=== PATIENT | male | born 2000 | race Two or more races ===

== ENCOUNTER 2020-06-11 02:27 | Emergency (ER) | payer OTHER ==
[~2020-06-11] VITALS: Ht 170.2 cm; Wt 64.9 kg
[2020-06-11 04:00] VITALS: BP 99/50
[2020-06-11 04:59] LABS: Basophils # (auto) 0.1 10 ^3/uL (0-0.2); Basophils % (auto) 0.7 % (0.0-2.0); Eosinophils # (auto) 0.3 10 ^3/uL (0-0.8); Eosinophils % (auto) 3.4 % (0.0-7.0); Hematocrit 38.4 % (41.0-53.0); Hemoglobin 13.3 g/dL (13.5-17.5); Lymphocytes # (auto) 3.2 10 ^3/uL (0.4-5.4); Lymphocytes % (auto) 38.5 % (10.0-50.0); Mean Corpuscular Hemoglobin 31.7 pg (28.0-32.0); Mean Corpuscular Hgb Conc. 34.5 g/dL (32.0-36.0); Mean Corpuscular Volume 91.7 fL (80.0-100.0); Monocytes # (auto) 0.9 10 ^3/uL (0-1.3); Monocytes % (auto) 10.3 % (0.0-12.0); Neutrophils % (auto) 47.1 % (37.0-80.0); Platelet Count (auto) 304 10^3/uL (140-450); Red Blood Cells 4.19 10^6/uL (4.5-5.90); Red Cell Distribution Width 12.3 % (11.8-14.3); White Blood Cell 8.4 10^3/uL (4.4-10.8)
[2020-06-11 05:16] LABS: Albumin 3.6 g/dL (3.4-5.0); Calcium 8.7 mg/dL (8.5-10.1); Chloride 113 mmol/L (98-107); INR 0.98 (0.9-1.15); Partial Thromboplastin Time 26.6 sec (23.0-31.2); Potassium 3.7 mmol/L (3.5-5.1); Sodium 145 mmol/L (136-145)
[2020-06-11 05:24] LABS: Alanine Aminotransferase 27 U/L (16-61); Alkaline Phosphatase 51 U/L (45-117); Anion Gap 8 (5-15); Aspartate Aminotransferase 13 U/L (15-37); BUN/Creatinine Ratio 16.9; Bilirubin, Total 0.3 mg/dL (0.2-1.0); Blood Urea Nitrogen 12 mg/dL (7-18); Carbon Dioxide 24 mmol/L (21-32); GFR African American 182 mL/min; GFR Non-African American 150 mL/min; Glucose 90 mg/dL (74-106); Total Protein 6.5 g/dL (6.4-8.2)
== END 2020-06-11 06:17 ==
LOC: EDBD 02:27 → EEVIPCON 02:27 → ER 02:27
DX: R07.89 Other chest pain (principal); R00.2 Palpitations
CPT/HCPCS: 36415; 71045; 80053; 82728; 83880; 84443; 84484; 85025; 85379; 85610; 85730; 93005